=== PATIENT | female | born 1940 | race Asian ===

== ENCOUNTER 2017-10-09 13:29 | Outpatient (CLI) | payer MEDICARE, MEDICAID ==
--- NOTE | 2017-10-09 15:23 | RAD ---
CHEST TWO VIEWS: History: Dyspnea. Comparison: None. FINDINGS: Normal cardiac silhouette. Slight elongation of the aorta. Pulmonary vessels and hilum are normal. Co stophrenic angles are clear. Hyperinflation with chronic changes. No consolidation or mass. No pneumo thorax. No osseous abnormality. There is rightward deviation of the trachea. The patient appears to be midline. The possibility of me diastinal mass cannot be excluded. IMPRESSION: 1. Hyperinflation. Chronic changes. 2. Rightward deviation of the trachea. Possibility of mediastinal mass cannot be completely excluded. Better interrogation with chest CT is recommended. Code T POS: [facility]
== END 2017-10-09 13:30 | disposition home or self-care (01) ==
LOC: RAD 13:29
PROVIDERS: ATTEND Internal Medicine Critical Care Medicine
DX: R06.00 Dyspnea, unspecified (principal); J39.8 Other specified diseases of upper respiratory tract
CPT/HCPCS: 71020

== ENCOUNTER 2017-11-20 13:12 | Outpatient (CLI) | payer SELFPAY, OTHER ==
--- NOTE | 2017-11-20 15:56 | CT ---
CT CHEST WITHOUT CONTRAST: HISTORY: Mediastinal mass, abnormal chest x-ray. FINDINGS: Correlation is made with the chest radiograph of 10/09/17. Absence of IV contrast reduces the sensitivity of exam, particularly for evaluation of mediastinal, h ilar, and vascular structures. There is enlargement of the thyroid gland with intrathoracic/substernal extension. Heterogeneity and curvilinear foci of calcifications are present in the goitre. This results in deviation of the trac hea to the right which was also seen on the chest radiograph of 10/09/17. There are vascular calcifications without evidence of aneurysmal dilatation of the thoracic aorta. N o pleural or pericardial effusions are seen. There is subsegmental atelectasis in the right middle l obe and the right lower lobe. No pneumothoraces or lung masses are seen. There are degenerative divya nges in the spine. Upper abdominal tomograms demonstrate changes of cholecystectomy, colonic diverti culosis, and right renal cysts. IMPRESSION: Multinodular goiter with intrathoracic/substernal extension causing rightward deviation of the trache a. POS: [facility]
== END 2017-11-20 13:13 | disposition home or self-care (01) ==
LOC: CT 13:12
PROVIDERS: ATTEND Internal Medicine Critical Care Medicine
DX: J98.59 Other diseases of mediastinum, not elsewhere classified (principal); E04.2 Nontoxic multinodular goiter
CPT/HCPCS: 71250; 82565